=== PATIENT | female | born 1955 | race Caucasian/White ===

== ENCOUNTER → 2018-01-02 19:29 | Outpatient (CLI) | payer OTHER | END | disposition home or self-care (01) | LOC: D.SLEEP 19:29 | DX: G47.10 Hypersomnia, unspecified (principal); G47.61 Periodic limb movement disorder; Z01.812 Encounter for preprocedural laboratory examination ==

== ENCOUNTER → 2018-01-23 10:13 | Outpatient (CLI) | payer OTHER ==
--- NOTE | ~2018-01-23 | EC ---
PATIENT:BOSSMAN MARTINEZ DATE OF SERVICE: 01/23/18 SEX: F MEDICAL RECORD: [id number] DATE OF : 51 LOCATION:D.PENDING SALE TO [facility] AGE OF PATIENT: 62 ADMISSION DATE: 01/23/18 REFERRING PHYSICIAN: INTERPRETING PHYSICIAN: CIERA DA SILVA MD ECHOCARDIOGRAM REPORT ECHO CHARGES 4 ECHO COMPLETE Date: 01/23 CLINICAL DIAGNOSIS: TACHYCARDIA/CP/SYNCOPE/ PALPITATIONS H/O [place] ECHOCARDIOGRAPHIC MEASUREMENTS (adult normal given) AC root (d.<3.7cm) 3.5 cm LV Septum d (<1.2 cm> 1.4 cm Valve Excursion 1.8 cm LV Septum (systole) 1.9 cm Left Atria (s.<4.0cm> 3.4 cm LVPW d(<1.2cm) 1.4 cm RV (d.<2.3cm) 2.8 cm LVPW (sytole) 2.0 cm LV diastole(<5.6CM) 5.1 cm MV E-F(>70mm/sec) cm LV systole 2.8 cm LVOT Diameter 1.7 cm MV exc.(>10mm) cm Est.ejection fraction (50-75%) % DOPPLER: LVIT cm/sec A 79.0 cm/sec E 87.0 cm/sec LA cm/sec RVSP 33.0 mmHg LVOT 87.0 cm/sec AOP1/2T m/s Asc. 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 Da Silva TAPE# PACS Pericardial Effusion N DATE OF SERVICE: PROCEDURE: Transthoracic echocardiogram. FINDINGS: 1. Left ventricle shows mild left ventricular hypertrophy. 2. The left atrium is normal. 3. The aortic valve is normal. 4. The mitral valve has mild mitral regurgitation. ECHOCARDIOGRAM REPORT [id number] BOSSMAN MARTINEZ 5. Tricuspid valve has mild tricuspid regurgitation. RVSP is grossly normal. 6. The right ventricle is normal. 7. The right atrium is normal. 8. There is LVH. There is evidence of grade II diastolic dysfunction. CONCLUSION: The patient has evidence of mild hypertensive heart disease, otherwise normal echocardiogram for stated age. TRANSINT:[id number] Voice Confirmation ID: [id number] DOCUMENT ID: [id number] CIERA DA SILVA MD at 1030 CC: [id number] DICTATION DATE: 01/24/18 0847 FORESTER AIDE: 01/24/18 0911 DEP CLI 01/23/18 [id number] [place] [address]
== END | disposition home or self-care (01) ==
LOC: D.ECHO 10:13
DX: R00.0 Tachycardia, unspecified (principal); R07.9 Chest pain, unspecified; R55 Syncope and collapse; R00.2 Palpitations; I25.2 Old myocardial infarction